=== PATIENT | female | born 1980 | race Two or more races ===

== ENCOUNTER 2018-12-08 11:36 | Emergency (ER) | payer MEDICAID, OTHER ==
[2018-12-08] MEDS ORDERED: LIDOCAINE 2% VISCOUS SOLN 20 ML UDCUP PO ONE (12:10)
[2018-12-08] MEDS ORDERED: METOCLOPRAMIDE HCL ORAL SOLN 10 MG/10 ML UDCUP PO ONE (12:10)
[2018-12-08] MEDS ORDERED: MAG HYDROX/AL HYDROX/SIMETH SUSP 30 ML UDCUP PO ONE (12:10)
--- NOTE | 2018-12-08 12:13 | ER Document Report ---
ED Cardiac - General Chief Complaint: Chest Pain Stated Complaint: CHEST PAIN Time Seen by Provider: 12/08/18 12:03 TRAVEL OUTSIDE OF THE [place] IN LAST 30 DAYS: No - HPI Notes: Patient is a 38-year-old female that presents to the emergency department for chief complaint of chest pain. Patient reports a sharp substernal chest pain that started suddenly while at rest at 11 AM this morning. Patient states she has no radiation of the pain. Pain is worse when she lays flat on her back and is improved with sitting forward. She did try Tums and Zantac with minimal improvement of pain which was when she called EMS. EMS administered aspirin and 2 sublingual nitroglycerin which she states gave her slight improvement of symptoms. She does report history of acid reflux but has never had pain like this before. She denies recent fever or illness. She denies recent surgery, travel, hospitalization, exogenous estrogen use, history of cancer, history of DVT/PE. She is no family history of DVT/PE or CAD. Patient has never had a cardiac work-up before experience chest pain similar to this. Past Medical History: Negative Past Surgical History: Negative Social History: Daily tobacco. Occasional alcohol. Denies drug use Family History: Reviewed and noncontributory for presenting illness Allergies: Reviewed, see documented allergy list. REVIEW OF SYSTEMS: CONSTITUTIONAL : No fever No chills No diaphoresis No recent illness EENT: No vision changes No congestion No sore throat CARDIOVASCULAR: chest pain No palpitations RESPIRATORY: No shortness of breath No cough No difficulty breathing GASTROINTESTINAL: No abdominal pain No nausea No vomiting No diarrhea GENITOURINARY: No dysuria No hematuria No difficulty urinating MUSCULOSKELETAL: No back pain No leg pain No arm pain SKIN: No rashes No lesions LYMPHATIC: No swollen, enlarged glands. NEUROLOGICAL: No lightheadedness No headache No weakness No paresthesias PSYCHIATRIC: No anxiety No depression PHYSICAL EXAMINATION: Vital signs reviewed, nursing noted reviewed. GENERAL: Appears uncomfortable, well-nourished and in no acute distress. HEAD: Atraumatic, normocephalic. EYES: Eyes appear normal, extraocular movements intact, sclera anicteric, conjunctiva are normal. ENT: nares patent, oropharynx clear without exudates. Moist mucous membranes. NECK: Normal range of motion, supple without lymphadenopathy LUNGS: No anterior chest wall tenderness, breath sounds clear to auscultation bilaterally and equal. No wheezes rales or rhonchi. HEART: Regular rate and rhythm without murmurs ABDOMEN: Soft, nontender, normoactive bowel sounds. No rebound, guarding, or rigidity. No masses appreciated. EXTREMITIES: Nontender, good range of motion, no pitting or edema. NEUROLOGICAL: No focal neurological deficits. Moves all extremities spontaneously Motor and sensory grossly intact on exam. PSYCH: Anxious mood, normal affect. SKIN: Warm, Dry, normal turgor, no rashes or lesions noted on exposed skin - Related Data Allergies/Adverse Reactions: No Known Allergies Allergy (Verified 12/08/18 11:57) Past Medical History - Social History Smoking Status: Current Every Day Smoker Family History: Reviewed & Not Pertinent Patient has suicidal ideation: No Patient has homicidal ideation: No Physical Exam - Vital signs Vitals: Resp 11 L 12/08/18 11:42 Course - Re-evaluation Re-evalutation: 12/08/18 12:47 Vitals reviewed. Nursing notes reviewed. Patient had already received aspirin and nitro prior to arrival without significant improvement of symptoms. I provided a GI cocktail in the emergency room and on reevaluation she states she is feeling almost complete resolution of her symptoms. Her EKG shows no acute ischemic changes and she has no known risk factors for coronary artery disease, I do not clinically suspect ACS. She is PERC criteria negative and I am not clinically suspicious for pulmonary embolism. Chest x-ray is still pending to evaluate for pneumomediastinum, pneumothorax or other acute process. Patient improved currently. 12/08/18 13:52 Patient symptoms have continued to improve in the ED. Her chest x-ray shows no pneumomediastinum pneumothorax or other acute cardiopulmonary process. Patient has remained hemodynamically stable. Patient's may be related to acid reflux, peptic ulcers or gastritis. Patient will be started on PPI and counseled on dietary changes. She will follow with her primary care doctor for reevaluation in the next few days. She will return for new or worsening symptoms. She is stable at discharge. Chest X-Ray 12/08/18 12:03 IMPRESSION: No acute cardiopulmonary process. - Vital Signs Vital signs: Temp Pulse Resp BP Pulse Ox 98.1 F 21 H 119/54 L 98 12/08/18 11:57 12/08/18 13:18 12/08/18 13:18 12/08/18 13:18 - EKG Interpretation by Me Additional EKG results interpreted by me: 12/08/18 12:12 Interpreted by myself [id number]: Normal sinus rhythm, rate 63, normal axis, no ectopy, no STEMI Discharge - Discharge Clinical Impression: Chest pain Qualifiers: Chest pain type: unspecified Qualified Code(s): R07.9 - Chest pain, unspecified Condition: Stable Disposition: HOME, SELF-CARE Instructions: Prilosec (Acid Pump Inhibitor) ([facility]) Additional Instructions: Please return to the emergency department if you have any worsening, or concern of your symptoms. Please return to the emergency department if you develop chest pain, difficulty breathing, severe abdominal pain, or ongoing vomiting. Please follow-up with your primary care physician in 2-3 days and any other recommended physicians. If prescribed, take all medications as directed. If you have any questions or concerns do not hesitate to return the emergency department for evaluation. Avoid spicy food, fried food, citric food, caffeine, chocolate, peppermint, alcohol, and tobacco products as these can aggravate acid reflux. Prescriptions: Omeprazole 40 mg PO DAILY #30 capsule. Referrals: [facility] [Provider Group] - Follow up as needed
--- NOTE | 2018-12-08 13:16 | RADIOLOGY REPORT (SQ) ---
EXAM DESCRIPTION: CHEST 2 VIEWS COMPLETED DATE/TIME: 12/08/2018 1:08 pm REASON FOR STUDY: shortness of breath COMPARISON: None. EXAM PARAMETERS: NUMBER OF VIEWS: two views TECHNIQUE: Digital Frontal and Lateral radiographic views of the chest acquired. RADIATION DOSE: NA LIMITATIONS: none FINDINGS: LUNGS AND PLEURA: No consolidation, pleural effusion or pneumothorax. MEDIASTINUM AND HILAR STRUCTURES: No mediastinal or hilar contour abnormality. HEART AND VASCULAR STRUCTURES: The cardiac silhouette and pulmonary vasculature are within normal flores its. BONES: No acute findings. HARDWARE: None. OTHER: No other finding. IMPRESSION: No acute cardiopulmonary process. TECHNICAL DOCUMENTATION: JOB ID: [id number] [employer]- All Rights Reserved Reading location - IP/workstation name: [email or web address]
[2018-12-08 14:05] VITALS: BP 121/64
--- NOTE | 2018-12-08 23:51 | EKG REPORT ---
SEVERITY:- NORMAL ECG - SINUS RHYTHM : Confirmed by: Alessandra Helms MD 08-Dec-2018 23:51:05
== END 2018-12-08 14:05 | disposition home or self-care (01) ==
LOC: ER 11:36
DX: R07.9 Chest pain, unspecified (principal); F17.200 Nicotine dependence, unspecified, uncomplicated
CPT/HCPCS: 93005; 99285; 71046; 93010; J3490